=== PATIENT | female | born 1965 | race Two or more races ===

== ENCOUNTER 2021-07-22 08:52 | Emergency (ER) | payer OTHER, SELFPAY ==
--- NOTE | ~2021-07-22 | XR_ITS ---
EXAMINATION: CHEST, LEFT RIBS, LUMBAR SPINE AND THORACIC SPINE CLINICAL INFORMATION: Fall. Pain COMPARISON: Chest 06/22/2017. TECHNIQUE: Chest one view. Left RIBS 3 views. Lumbar spine 3 views. Dorsal spine 3 views. FINDINGS: Chest: Lungs are well-expanded and clear of acute process. The heart size and pulmonary vascularity is normal. No gross bony abnormality seen. Left RIBS: Multiple views of left ribs reveal no visible rib fracture or bony abnormality. The soft tissues are normal. Lumbar spine: There is normal lumbar lordosis. The vertebral heights, alignment and disc heights are normal. No visible acute fracture, dislocation or subluxation seen. There is no lytic process. The paravertebral soft tissues are normal. Dorsal spine: There is normal thoracic kyphosis. The vertebral heights, alignment and disc heights are normal. No visible acute fracture, dislocation or lytic process seen. The paravertebral soft tissues are normal. XR/XR thoracic spine 3V IMPRESSION: Unremarkable chest exam. No left rib fractures or pneumothorax. Unremarkable lumbar and dorsal spine exam with no visible fracture or bony abnormality.
--- NOTE | ~2021-07-22 | XR_ITS ---
EXAMINATION: CHEST, LEFT RIBS, LUMBAR SPINE AND THORACIC SPINE CLINICAL INFORMATION: Fall. Pain COMPARISON: Chest 06/22/2017. TECHNIQUE: Chest one view. Left RIBS 3 views. Lumbar spine 3 views. Dorsal spine 3 views. FINDINGS: Chest: Lungs are well-expanded and clear of acute process. The heart size and pulmonary vascularity is normal. No gross bony abnormality seen. Left RIBS: Multiple views of left ribs reveal no visible rib fracture or bony abnormality. The soft tissues are normal. Lumbar spine: There is normal lumbar lordosis. The vertebral heights, alignment and disc heights are normal. No visible acute fracture, dislocation or subluxation seen. There is no lytic process. The paravertebral soft tissues are normal. Dorsal spine: There is normal thoracic kyphosis. The vertebral heights, alignment and disc heights are normal. No visible acute fracture, dislocation or lytic process seen. The paravertebral soft tissues are normal. XR/XR lumbar spine 2-3V IMPRESSION: Unremarkable chest exam. No left rib fractures or pneumothorax. Unremarkable lumbar and dorsal spine exam with no visible fracture or bony abnormality.
--- NOTE | ~2021-07-22 | CT_ITS ---
EXAMINATION: CT CERVICAL SPINE WITHOUT CONTRAST CLINICAL INFORMATION: Fall. Headache. COMPARISON: None TECHNIQUE: Axial images through the cervical spine without contrast. Sagittal and coronal reconstructions on the technologist workstation were performed. This CT examination was performed using dose optimization techniques as appropriate, variously including the following: *Automated exposure control *Adjustment of mA and/or kV according to patient size (this includes techniques or standardized protocols for targeted exams where dose is matched to indication/reason for exam; i.e. extremities or head) *Use of iterative reconstruction technique DLP: 312 mGy-cm FINDINGS: Bone alignment is normal. No fracture or dislocation is seen. There is mild degenerative spondylosis at C4-C5 and C5-C6. Disc spaces are normal. Prevertebral soft tissues are normal. There is shotty cervical lymphadenopathy. Visualized lung apices are clear. CT/CT cervical spine wo con IMPRESSION: No fracture or dislocation. Mild degenerative changes. Fleischner guidelines were followed.
--- NOTE | ~2021-07-22 | XR_ITS ---
EXAMINATION: CHEST, LEFT RIBS, LUMBAR SPINE AND THORACIC SPINE CLINICAL INFORMATION: Fall. Pain COMPARISON: Chest 06/22/2017. TECHNIQUE: Chest one view. Left RIBS 3 views. Lumbar spine 3 views. Dorsal spine 3 views. FINDINGS: Chest: Lungs are well-expanded and clear of acute process. The heart size and pulmonary vascularity is normal. No gross bony abnormality seen. Left RIBS: Multiple views of left ribs reveal no visible rib fracture or bony abnormality. The soft tissues are normal. Lumbar spine: There is normal lumbar lordosis. The vertebral heights, alignment and disc heights are normal. No visible acute fracture, dislocation or subluxation seen. There is no lytic process. The paravertebral soft tissues are normal. Dorsal spine: There is normal thoracic kyphosis. The vertebral heights, alignment and disc heights are normal. No visible acute fracture, dislocation or lytic process seen. The paravertebral soft tissues are normal. XR/XR ribs LT 2V IMPRESSION: Unremarkable chest exam. No left rib fractures or pneumothorax. Unremarkable lumbar and dorsal spine exam with no visible fracture or bony abnormality.
--- NOTE | ~2021-07-22 | XR_ITS ---
EXAMINATION: CHEST, LEFT RIBS, LUMBAR SPINE AND THORACIC SPINE CLINICAL INFORMATION: Fall. Pain COMPARISON: Chest 06/22/2017. TECHNIQUE: Chest one view. Left RIBS 3 views. Lumbar spine 3 views. Dorsal spine 3 views. FINDINGS: Chest: Lungs are well-expanded and clear of acute process. The heart size and pulmonary vascularity is normal. No gross bony abnormality seen. Left RIBS: Multiple views of left ribs reveal no visible rib fracture or bony abnormality. The soft tissues are normal. Lumbar spine: There is normal lumbar lordosis. The vertebral heights, alignment and disc heights are normal. No visible acute fracture, dislocation or subluxation seen. There is no lytic process. The paravertebral soft tissues are normal. Dorsal spine: There is normal thoracic kyphosis. The vertebral heights, alignment and disc heights are normal. No visible acute fracture, dislocation or lytic process seen. The paravertebral soft tissues are normal. XR/XR chest 1V IMPRESSION: Unremarkable chest exam. No left rib fractures or pneumothorax. Unremarkable lumbar and dorsal spine exam with no visible fracture or bony abnormality.
--- NOTE | ~2021-07-22 | CT_ITS ---
EXAMINATION: CT HEAD WITHOUT CONTRAST CLINICAL INFORMATION: Fall. Headache. COMPARISON: Previous head CT January 2018 TECHNIQUE: Contiguous axial imaging was performed from the skull base to vertex without intravenous administration of contrast. This CT examination was performed using dose optimization techniques as appropriate, variously including the following: *Automated exposure control *Adjustment of mA and/or kV according to patient size (this includes techniques or standardized protocols for targeted exams where dose is matched to indication/reason for exam; i.e. extremities or head) *Use of iterative reconstruction technique DLP: 677 mGy-cm FINDINGS: There is no evidence of acute intracranial hemorrhage or territorial infarction. No abnormal mass effect or midline shift is seen. Adhikari to white matter differentiation is well preserved. No extra-axial fluid collections are identified. The ventricles are normal in size. There is no abnormal attenuation within the brain parenchyma. The osseous structures and soft tissues are normal. There is mild inflammatory change in the ethmoid and left maxillary sinus. The mastoid air cells and visualized portions of the paranasal sinuses are otherwise clear. CT/CT head/brain wo con IMPRESSION: No acute intracranial findings. Mild inflammatory change in the ethmoid and left maxillary sinuses.
[2021-07-22 08:57] VITALS: BP 145/95; PULSE 62; O2SAT 100
[2021-07-22] MEDS: Acetaminophen 325 MG TABLET 650 MG PO (09:47)
--- NOTE | 2021-07-22 09:53 | ED_ITS ---
HPI - Fall General Chief Complaint: Fall Stated Complaint: FALL,BACK PAIN,+COLLAR,-THINNERS Time Seen by Provider: 07/22/21 09:00 Source: patient Mode of arrival: ambulatory Limitations: no limitations History of Present Illness HPI Narrative: 56-year-old female presents to ED for headache, back pain, and left lower rib pain after falling this morning. Patient states she was walking down the stairs with her son and she slipped on ice which caused her to fall back onto her back, left posteior rib and hit her head. Patient denies having any chest pain, dizziness, shortness of breath, headache, or abdominal pain before falling. Once again patient states she did not see the ice and she slipped and fell. Patient denies any loss of consciousness Related Data Previous Rx's Medication Instructions Recorded cyclobenzaprine 10 mg tablet 10 mg PO TID PRN #18 tab 07/22/21 naproxen 500 mg tablet 500 mg PO BID PRN 10 Days #20 tab 07/22/21 Allergies Allergy/AdvReac Type Severity Reaction Status Date / Time No Known Allergies [NKA] Allergy Unknown NOT Unverified 03/21/20 17:28 APPLICABLE Review of Systems Review of Systems: Only back pain, headache, left posterior rib pain due to fall Yes all other systems are reviewed and are negative PMFSH Social History Social History Advance Directives: No Advance Directives Information Provided: No Physical Exam Vital Signs: Vital Signs: Last Vital Signs Temp 98 F 07/22/21 10:03 Pulse 67 07/22/21 11:13 Resp 18 07/22/21 11:13 BP 125/81 07/22/21 11:13 Pulse Ox 100 07/22/21 11:13 BMI result Body Mass Index 22.6 Const: General: cooperative, healthy appearing, comfortable, no acute distress, well developed, alert, awake and Physically active Orientation/consciousness: patient oriented x3 HENMT: Head: Yes normal to inspection, Yes No palpable skull fracture present and Yes normocephalic Head images: 1. Tenderness on palpation. Negative for hematoma, laceration, or skull krepitus. Eyes: General: appearance normal, both eyes and all related structures Neck: Neck: Yes normal visual inspection, Yes full ROM, Yes no lymphadenopathy, Yes no meningeal signs, Yes trachea midline, Yes supple, No anterior neck swelling and No tender Chest: Chest palpation & inspection: normal inspection of the chest and normal palpation of entire chest wall Resp: Effort & Inspection: normal respiratory effort and able to speak in complete sentences Auscultation: clear to auscultation bilaterally Cardio: Jugular venous distension: no JVD Heart sounds: S1 normal heart sound present and S2 normal heart sound present GI: Inspection: Yes normal to inspection and No abdominal wall ecchymosis Palpation (GI): Soft to palpation, not firm, nontender, no guarding and not rigid : General: No CVA tenderness and Yes no CVA tenderness Back/Spine/Pelvis: Back: no CVA tenderness, No CVA tenderness and back tenderness (Thoracic and lumbar spine tenerness) Back/spine/pelvis image: 1. Positive for tenderness on palpation. Negative for ecchymosis, crepitus, erythema or obvious deformity Skin: General skin exam: no rashes or lesions noted and elasticity normal Neuro: General: patient oriented x3, gait normal, no meningeal signs and CN's II-XI intact bilaterally Cranial nerves: Yes CN's II-XII intact bilaterally Extrem: General: Yes normal to inspection and Yes full ROM Psych: Appearance: grossly normal, well kempt and not disheveled Course Course Course Narrative: Patient is a neck collar. Patient will be sent for imaging. Patient for now will be given Tylenol. Reevaluation(s) Reevaluation #1: Patient imaging all came back normal and negative for any surgical/medical etiology or life-threatening issues. Patient will be discharged with pain med Time: 11:42 MDM - Fall MDM Narrative Medical decision making narrative: Fall Discharge Plan Discharge Clinical Impression: Contusion, Fall Patient Disposition: Home, Self-Care Instructions: Contusion in Adults (ED) Additional Instructions: [place] im?genes resultaron negativas para cualquier emergencia que ponga en peligro la sidra. Tus im?genes resultaron negativas para cualquier fractura o hemorragia cerebral. Se le emanuel? de marilin con analg?sicos y relajantes musculares. Regrese al servicio de urgencias por cualquier dolor en el pecho, dificultad para respirar, dolor de cherry, mareos, v?mitos, dolor abdominal, sangrado rectal, v?mitos con bryson, bryson en la orina o cualquier otro s?ntoma preocupante. Por favor, alberta un seguimiento con el proveedor de atenci?n primaria Prescriptions: New naproxen 500 mg tablet 500 mg PO BID PRN (Reason: pain) 10 Days Qty: 20 RF: 0 cyclobenzaprine 10 mg tablet 10 mg PO TID PRN (Reason: pain) Qty: 18 RF: 0 Stand Alone Forms: Work/School Release Interventions: ED Discharge Assessment Last Done: 07/22/21 11:59 Discharge Date/Time: 07/22/21 12:00 Print Language: Frisian
[2021-07-22 10:03] VITALS: BP 135/90; PULSE 71; RESP 15; TEMP 36.6; O2SAT 99; BMI 22.6
[2021-07-22 11:13] VITALS: BP 125/81; PULSE 67; RESP 18; O2SAT 100
[2021-07-22] MEDS: Cyclobenzaprine HCl 5 MG TABLET PO (11:13)
[2021-07-22] MEDS: Ketorolac Tromethamine 30 MG/ML VIAL IM (11:13)
== END 2021-07-22 12:00 | disposition home or self-care (01) ==
PROVIDERS: Emergency Provider Emergency Medicine; PCP Internal Medicine
DX: S20.212A Contusion of left front wall of thorax, initial encounter (principal); W00.1XXA Fall from stairs and steps due to ice and snow, initial encounter; Y93.89 Activity, other specified; Y92.038 Other place in apartment as the place of occurrence of the external cause; Y99.9 Unspecified external cause status
CPT/HCPCS: 70450; 71045; 71100; 71101; 72072; 72100; 72125; 96372; 99284; J1885

== ENCOUNTER 2021-07-25 10:20 | Outpatient (REF) | payer OTHER, SELFPAY ==
--- NOTE | ~2021-07-25 | XR_ITS ---
EXAMINATION: XR HUMERUS, LEFT CLINICAL INFORMATION: Pain in left upper arm COMPARISON: None TECHNIQUE: AP and lateral views of the left humerus. FINDINGS: The bones and soft tissues are normal. No fracture. Imaged portions of the shoulder and elbow are unremarkable. XR/XR humerus LT IMPRESSION: Unremarkable left humerus.
== END 2021-07-25 10:21 | disposition home or self-care (01) ==
LOC: HO.XRAY 10:20
PROVIDERS: Visit Provider Family Medicine
DX: M79.622 Pain in left upper arm (principal)
CPT/HCPCS: 73060

== ENCOUNTER 2021-08-21 08:40 | Outpatient (REF) | payer OTHER, SELFPAY ==
--- NOTE | ~2021-08-21 | MM_ITS ---
EXAMINATION: MM SCREENING DIGITAL BREAST TOMOSYNTHESIS, BILATERAL CLINICAL INFORMATION: Screening. Asymptomatic. The lifetime risk of breast cancer based on the Tyrer-Cuzick Model is 4%. COMPARISON: Mammography: 12/15/2018, 10/20/2018, 01/09/2009, left breast ultrasound 12/15/2018 TECHNIQUE: Digital breast tomosynthesis is performed in both the craniocaudal and mediolateral oblique views along with computer-aided detection (CAD). Synthesized 2D images are generated from the tomosynthesis. FINDINGS: There are scattered areas of fibroglandular density (ACR BI-RADS breast composition Category b). Parenchymal pattern is similar to prior exam. There is stable parenchymal asymmetry anterior medial left breast on CC view. No developing density or interval mass or architectural abnormality. There are some fine vascular calcifications again seen. The axilla and skin contours are unremarkable. MM/MM tomosynthesis screening BI IMPRESSION: No mammographic evidence of malignancy. ASSESSMENT: BI-RADS 2: Benign RECOMMENDATION: Routine annual mammography screening. This patient's information was entered into a reminder system with a target due date for their next mammogram.
== END 2021-08-21 08:41 | disposition home or self-care (01) ==
LOC: HO.MAMMO 08:40
PROVIDERS: PCP Internal Medicine; Visit Provider Internal Medicine
DX: Z12.31 Encounter for screening mammogram for malignant neoplasm of breast (principal)
CPT/HCPCS: 77063; 77067

== ENCOUNTER 2022-08-27 08:41 | Outpatient (REF) | payer OTHER, SELFPAY ==
--- NOTE | ~2022-08-27 | MM_ITS ---
EXAMINATION: MM SCREENING DIGITAL BREAST TOMOSYNTHESIS, BILATERAL CLINICAL INFORMATION: Screening. Asymptomatic. The lifetime risk of breast cancer based on the Tyrer-Cuzick Model is 6%. COMPARISON: Mammography: 08/21/2021, 12/15/2018, 10/20/2018; left breast ultrasound 12/15/2018 TECHNIQUE: Digital breast tomosynthesis is performed in both the craniocaudal and mediolateral oblique views along with computer-aided detection (CAD). Synthesized 2D images are generated from the tomosynthesis. FINDINGS: There are scattered areas of fibroglandular density (ACR BI-RADS breast composition Category b). There are no significant masses, abnormal calcifications, or other abnormalities. No architectural abnormality or developing density or significant change from prior studies. The axilla and skin contours are unremarkable. There are no significant changes from prior studies. MM/MM tomosynthesis screening BI IMPRESSION: No mammographic evidence of malignancy. ASSESSMENT: BI-RADS 1: Negative RECOMMENDATION: Routine annual mammography screening. This patient's information was entered into a reminder system with a target due date for their next mammogram.
== END 2022-08-27 08:42 | disposition home or self-care (01) ==
LOC: HO.MAMMO 08:41
PROVIDERS: PCP Internal Medicine; Visit Provider Internal Medicine
DX: Z12.31 Encounter for screening mammogram for malignant neoplasm of breast (principal)
CPT/HCPCS: 77063; 77067

== ENCOUNTER 2023-02-17 12:29 | Outpatient (REF) | payer OTHER, SELFPAY ==
[2023-02-17 13:08] LABS: MANUAL DIFF FLAG NO
[2023-02-17 13:25] LABS: Basophils Percent Auto 0.6 % (0-2); Eosinophils Absolute Auto 0.2 X10*3/uL (0.0-0.4); Eosinophils Percent Auto 2.2 % (0-4); Hematocrit 39.2 % (37.0-47.0); Hemoglobin 12.2 g/dl (12.0-16.0); Imm Gran Abs Auto 0.02 X10*3/uL (0.00-0.03); Imm Gran Pct Auto 0.3 % (0.0-0.4); Lymphocytes Absolute Auto 1.8 X10*3/uL (1.2-4.9); Lymphocytes Percent Auto 26.1 % (20-40); Mean Corpuscular HGB Conc 31.1 g/dl (31.0-35.0); Mean Corpuscular Hemoglobin 24.7 pg (27.0-33.0); Mean Corpuscular Volume 79.5 fL (80.0-98.0); Mean Platelet Volume 12.2 fL (9.4-12.3); Monocytes Absolute Auto 0.4 X10*3/uL (0.1-1.2); Monocytes Percent Auto 5.5 % (2-11); Neutrophils Absolute Auto 4.5 x10*3/uL (2.0-8.3); Neutrophils Percent Auto 65.3 % (45-73); Platelet Count 336 X10*3/uL (160-400); Red Blood Count 4.93 X10*6/uL (4.20-5.50); Red Cell Distribution Width 15.3 % (11.0-16.0); White Blood Count 6.9 X10*3/uL (4.8-10.8)
[2023-02-17 14:07] LABS: Alanine Aminotransferase 25 U/L (0-31); Alkaline Phosphatase 131 U/L (39-117); Anion Gap 10 (12-20); Aspartate Amino Transferase 27 U/L (5-31); Bilirubin Direct 0.1 mg/dL (0.0-0.5); Bilirubin Total 0.3 mg/dL (0.0-1.0); Blood Urea Nitrogen 12 mg/dL (9-16); Calcium 9.1 mg/dL (8.4-10.2); Carbon Dioxide 26 mmol/L (22-29); Chloride 107 mmol/L (96-108); Cholesterol 240 mg/dL; Estimated Glomerular Filt Rate 59; Glucose Random 93 mg/dL (60-115); HDL Cholesterol 37 mg/dL; LDL Cholesterol Calculated 134 mg/dl; Potassium 4.2 mmol/L (3.3-5.1); Sodium 139 mmol/L (135-145); Total Protein 7.9 g/dL (6.5-8.0); Triglycerides 346 mg/dL
[2023-02-17 14:08] LABS: TSH reflex Free T4 1.87 uIU/mL (0.32-4.0)
[2023-02-18 05:24] LABS: ~HepC Num1 0.08 S/CO (0.00-0.79); ~Hepatitis C Antibody Nonreactive (Nonreactive)
[2023-02-18 05:25] LABS: HIV AB/AG Nonreactive (Nonreactive); HIV Num 1 0.05 S/CO (0.00-0.99)
== END 2023-02-17 12:30 | disposition home or self-care (01) ==
LOC: HO.HHCL 12:29
PROVIDERS: Visit Provider Internal Medicine
DX: F41.8 Other specified anxiety disorders (principal); E66.09 Other obesity due to excess calories; J45.40 Moderate persistent asthma, uncomplicated; E53.8 Deficiency of other specified B group vitamins
CPT/HCPCS: 36415; 80048; 80061; 80076; 84443; 85025; 86803; 87389

== ENCOUNTER 2023-06-07 18:03 | Outpatient (REF) | payer OTHER, SELFPAY ==
[2023-06-07 18:47] LABS: Influenza A PCR NEGATIVE (Negative); Influenza B PCR NEGATIVE (Negative); Resp Syncy Virus RNA Qual PCR NEGATIVE (Negative); SARS COV2 PCR INHOUSE NEGATIVE (Negative)
== END 2023-06-07 18:04 | disposition home or self-care (01) ==
LOC: HO.HHCLNP 18:03
PROVIDERS: Visit Provider Internal Medicine
DX: Z11.52 Encounter for screening for COVID-19 (principal); J06.9 Acute upper respiratory infection, unspecified
CPT/HCPCS: 0241U

== ENCOUNTER 2023-09-02 09:19 | Outpatient (REF) | payer OTHER, SELFPAY | END 2023-09-02 09:20 | disposition home or self-care (01) | LOC: HO.MAMMO 09:19 | PROVIDERS: PCP Internal Medicine; Visit Provider Internal Medicine | DX: Z12.31 Encounter for screening mammogram for malignant neoplasm of breast (principal) | CPT/HCPCS: 77063; 77067 ==

== ENCOUNTER → 2023-09-02 09:30 | Outpatient (BNV) | payer OTHER, SELFPAY | PROVIDERS: PCP Internal Medicine; Visit Provider Radiology Diagnostic Radiology | DX: Z12.31 Encounter for screening mammogram for malignant neoplasm of breast (principal) | CPT/HCPCS: 77063; 77067 ==

== ENCOUNTER 2024-02-18 16:22 | Outpatient (REF) | payer OTHER, SELFPAY ==
[2024-02-22 17:03] LABS: HPV mRNA E6/E7 Not Detected (Not Detected)
== END 2024-02-18 16:23 | disposition home or self-care (01) ==
LOC: HO.HHCLNP 16:22
PROVIDERS: Visit Provider Internal Medicine
DX: Z12.4 Encounter for screening for malignant neoplasm of cervix (principal)
CPT/HCPCS: 36415; 87624; 88175

== ENCOUNTER 2024-09-07 09:18 | Outpatient (REF) | payer OTHER, SELFPAY | END 2024-09-07 09:19 | disposition home or self-care (01) | LOC: HO.MAMMO 09:18 | PROVIDERS: PCP Internal Medicine; Visit Provider Internal Medicine | DX: Z12.31 Encounter for screening mammogram for malignant neoplasm of breast (principal) | CPT/HCPCS: 77063; 77067 ==

== ENCOUNTER → 2024-09-07 09:45 | Outpatient (BNV) | payer OTHER, SELFPAY | PROVIDERS: PCP Internal Medicine; Visit Provider Internal Medicine | DX: Z12.31 Encounter for screening mammogram for malignant neoplasm of breast (principal) | CPT/HCPCS: 77063; 77067 ==